=== PATIENT | female | born 1950 | race African-American/Black ===

== ENCOUNTER 2020-09-03 19:39 | Inpatient (IN) | payer MEDICARE, OTHER ==
[~2020-09-03] VITALS: Ht 152.4 cm; Wt 57.7 kg
[2020-09-03 21:01] LABS: BASOPHILS % 0.6 % (0.0-2.0); EOSINOPHILS % 0.4 % (0.0-5.0); HEMATOCRIT. 36.8 % (36.0-48.0); HEMOGLOBIN. 12.8 g/dL (12.0-16.0); LYMPHOCYTES % 43.6 % (20.0-50.0); MEAN CORPUSCULAR HEMOGLOBIN 31.7 pg (28.0-32.0); MEAN CORPUSCULAR VOLUME 91.1 fL (81.0-99.0); MEAN PLATELET VOLUME 10.6 fl (7.4-10.4); MONOCYTES % 4.9 % (2.0-8.0); NEUTROPHILS % 50.5 % (40.0-76.0); PLATELET 118 x1000/uL (130-400); RED BLOOD CELL COUNT 4.04 mill/uL (4.2-5.4); RED CELL DISTRIBUTION WIDTH 13.6 % (11.6-14.6)
[2020-09-03 21:08] LABS: CHLORIDE 109 mEq/L (98-107)
[2020-09-03 21:10] LABS: INR 1.1; PROTHROMBIN TIME 11.4 sec (9.6-11.0)
[2020-09-03] MEDS ORDERED: ASPIRIN 325MG EC TABLET PO ONE (21:30)
[2020-09-03] MEDS ORDERED: CLOPIDOGREL 75MG TABLET PO ONE (21:30)
[2020-09-04] VITALS (7 sets, daily range): BP systolic 108–144; BP diastolic 43–51
[2020-09-04] MEDS: DEXT 5%/0.45% NACL KCL 20MEQ/L 1,000 ML IV SCH ×2 (05:16→14:17)
[2020-09-04 06:54] LABS: CHLORIDE 110 mEq/L (98-107)
[2020-09-04 07:04] LABS: HEMATOCRIT 34.7 % (36.0-48.0); MEAN CORPUSCULAR HEMOGLOBIN 31.6 pg (28.0-32.0); MEAN CORPUSCULAR VOLUME 91.1 fL (81.0-99.0); PLATELET 118 x1000/uL (130-400); RED BLOOD CELL COUNT 3.81 mill/uL (4.2-5.4); RED CELL DISTRIBUTION WIDTH 13.8 % (11.6-14.6)
[2020-09-04 07:13] LABS: HDL CHOLESTEROL 81 mg/dL (40-59)
[2020-09-04 07:15] LABS: LDL CHOLESTEROL 88 mg/dL (5-100)
[2020-09-04] MEDS ORDERED: ONDANSETRON HCL 4MG/2ML INJ IV PRN (10:00)
[2020-09-04] MEDS: ASPIRIN 81MG TABLET PO SCH (10:35)
[2020-09-04] MEDS: CLOPIDOGREL 75MG TABLET PO SCH (10:35)
[2020-09-04] MEDS: ENOXAPARIN 40MG/0.4ML SYR SUBCUT SCH (18:31)
[2020-09-04] MEDS: ATORVASTATIN CALCIUM 40MG TABLET PO SCH (21:34)
[2020-09-05 00:36] VITALS: BP 113/57
[2020-09-05 04:32] VITALS: BP 133/58
[2020-09-05] MEDS: DEXT 5%/0.45% NACL KCL 20MEQ/L 1,000 ML IV SCH ×3 (05:46→18:39)
[2020-09-05 07:27] LABS: CHLORIDE 107 mEq/L (98-107)
[2020-09-05 08:00] VITALS: BP 145/55
[2020-09-05 08:08] LABS: HEMATOCRIT. 37.9 % (36.0-48.0); HEMOGLOBIN. 12.7 g/dL (12.0-16.0); MEAN CORPUSCULAR HEMOGLOBIN 31.3 pg (28.0-32.0); MEAN CORPUSCULAR VOLUME 93.3 fL (81.0-99.0); MEAN PLATELET VOLUME 11.8 fl (7.4-10.4); PLATELET 127 x1000/uL (130-400); RED BLOOD CELL COUNT 4.06 mill/uL (4.2-5.4); RED CELL DISTRIBUTION WIDTH 13.7 % (11.6-14.6)
[2020-09-05] MEDS ORDERED: ASPIRIN 300MG SUPP PR SCH (09:00)
[2020-09-05] MEDS: CLOPIDOGREL 75MG TABLET PO SCH (09:19)
[2020-09-05] MEDS: ASPIRIN 81MG TABLET PO SCH (09:19)
[2020-09-05 12:00] VITALS: BP 120/44
[2020-09-05 16:00] VITALS: BP 117/45
[2020-09-05] MEDS: ENOXAPARIN 40MG/0.4ML SYR SUBCUT SCH (18:39)
[2020-09-05 20:00] VITALS: BP 122/54
[2020-09-05] MEDS: ATORVASTATIN CALCIUM 40MG TABLET PO SCH (20:57)
[2020-09-05] MEDS: ACETAMINOPHEN 325MG TABLET PO PRN (20:57)
[2020-09-05 22:28] LABS: PLATELET ESTIMATE SLIGHTLY DECREASED
[2020-09-06] VITALS: BP 162/59
[2020-09-06] MEDS: CLONIDINE 0.1MG TABLET PO PRN (01:15)
[2020-09-06 04:00] VITALS: BP 121/83
[2020-09-06] MEDS: DEXT 5%/0.45% NACL KCL 20MEQ/L 1,000 ML IV SCH ×2 (04:21→14:19)
[2020-09-06 06:55] LABS: CHLORIDE 110 mEq/L (98-107)
[2020-09-06 07:00] LABS: HEMATOCRIT. 37.2 % (36.0-48.0); HEMOGLOBIN. 12.7 g/dL (12.0-16.0); MEAN PLATELET VOLUME 11.1 fl (7.4-10.4); PLATELET 133 x1000/uL (130-400); RED BLOOD CELL COUNT 4.09 mill/uL (4.2-5.4); RED CELL DISTRIBUTION WIDTH 13.8 % (11.6-14.6)
[2020-09-06 08:00] VITALS: BP 135/62
[2020-09-06] MEDS: CLOPIDOGREL 75MG TABLET PO SCH (08:16)
[2020-09-06] MEDS: ASPIRIN 81MG TABLET PO SCH (08:16)
[2020-09-06 12:00] VITALS: BP 110/54
[2020-09-06 14:14] LABS: PLATELET ESTIMATE NORMAL
[2020-09-06 16:00] VITALS: BP 131/45
[2020-09-06] MEDS: ENOXAPARIN 40MG/0.4ML SYR SUBCUT SCH (17:00)
[2020-09-06 20:00] VITALS: BP 125/48
[2020-09-06] MEDS: ATORVASTATIN CALCIUM 40MG TABLET PO SCH (21:00)
[2020-09-07] VITALS: BP 129/49
[2020-09-07] MEDS: DEXT 5%/0.45% NACL KCL 20MEQ/L 1,000 ML IV SCH ×3 (01:12→20:48)
[2020-09-07 04:00] VITALS: BP 131/45
[2020-09-07 08:00] VITALS: BP 130/50
[2020-09-07] MEDS: CLOPIDOGREL 75MG TABLET PO SCH (08:38)
[2020-09-07] MEDS: ASPIRIN 81MG TABLET PO SCH (08:38)
[2020-09-07 16:00] VITALS: BP 136/70
[2020-09-07] MEDS: ENOXAPARIN 40MG/0.4ML SYR SUBCUT SCH (17:00)
[2020-09-07 20:00] VITALS: BP 122/45
[2020-09-07] MEDS: ATORVASTATIN CALCIUM 40MG TABLET PO SCH (20:48)
[2020-09-08] VITALS: BP 130/40
[2020-09-08 04:00] VITALS: BP 122/45
[2020-09-08 08:00] VITALS: BP 115/47
[2020-09-08] MEDS: DEXT 5%/0.45% NACL KCL 20MEQ/L 1,000 ML IV SCH ×2 (08:04→16:03)
[2020-09-08] MEDS: ASPIRIN 81MG TABLET PO SCH (08:04)
[2020-09-08] MEDS: CLOPIDOGREL 75MG TABLET PO SCH (08:04)
[2020-09-08 12:00] VITALS: BP 106/34
[2020-09-08 16:00] VITALS: BP 128/44
[2020-09-08] MEDS: ENOXAPARIN 40MG/0.4ML SYR SUBCUT SCH (16:04)
[2020-09-08] MEDS: ACETAMINOPHEN 325MG TABLET PO PRN (17:12)
[2020-09-08 20:00] VITALS: BP 114/51
[2020-09-08] MEDS: ATORVASTATIN CALCIUM 40MG TABLET PO SCH (20:28)
[2020-09-09] VITALS: BP 108/53
[2020-09-09] MEDS: DEXT 5%/0.45% NACL KCL 20MEQ/L 1,000 ML IV SCH ×3 (02:09→22:13)
[2020-09-09 04:00] VITALS: BP 139/49
[2020-09-09 07:06] LABS: BASOPHILS % 0.2 % (0.0-2.0); EOSINOPHILS % 1.6 % (0.0-5.0); HEMATOCRIT. 39.2 % (36.0-48.0); HEMOGLOBIN. 13.1 g/dL (12.0-16.0); LYMPHOCYTES % 43.8 % (20.0-50.0); MEAN CORPUSCULAR HEMOGLOBIN 31.5 pg (28.0-32.0); MEAN CORPUSCULAR VOLUME 94.4 fL (81.0-99.0); MONOCYTES % 9.7 % (2.0-8.0); NEUTROPHILS % 44.7 % (40.0-76.0); PLATELET 148 x1000/uL (130-400); RED BLOOD CELL COUNT 4.16 mill/uL (4.2-5.4); RED CELL DISTRIBUTION WIDTH 13.6 % (11.6-14.6)
[2020-09-09 07:21] LABS: CHLORIDE 108 mEq/L (98-107)
[2020-09-09 08:00] VITALS: BP 129/55
[2020-09-09] MEDS: ASPIRIN 81MG TABLET PO SCH (08:04)
[2020-09-09] MEDS: CLOPIDOGREL 75MG TABLET PO SCH (08:04)
[2020-09-09 08:59] LABS: CLARITY URINE CLEAR (CLEAR); COLOR URINE YELLOW (YELLOW); KETONES URINE NEGATIVE (NEGATIVE); LEUKOCYTE ESTERASE URINE 3+ (NEGATIVE); NITRITE URINE POSITIVE (NEGATIVE); OCCULT BLOOD URINE TRACE (NEGATIVE); PH URINE 6.5 (4.5-8.0); PROTEIN URINE NEGATIVE (NEGATIVE); SPECIFIC GRAVITY URINE 1.008 (1.005-1.030); UROBILINOGEN URINE 0.2 E.U./dL (0.2-1.0)
[2020-09-09 12:00] VITALS: BP 138/41
[2020-09-09] MEDS: VANCOMYCIN 1 G PREMIX 200 ML IV SCH (14:27)
[2020-09-09 16:00] VITALS: BP 135/46
[2020-09-09] MEDS: ENOXAPARIN 40MG/0.4ML SYR SUBCUT SCH (16:12)
[2020-09-09] MEDS: CEFTRIAXONE 1,000 MG in DEXTROSE 5% WATER 50 ML IV SCH (16:23)
[2020-09-09 20:00] VITALS: BP 128/50
[2020-09-09] MEDS: ATORVASTATIN CALCIUM 40MG TABLET PO SCH (20:34)
[2020-09-10] VITALS: BP 132/57
[2020-09-10 04:00] VITALS: BP 128/50
[2020-09-10 07:35] LABS: BASOPHILS % 0.3 % (0.0-2.0); HEMATOCRIT. 37.8 % (36.0-48.0); HEMOGLOBIN. 12.7 g/dL (12.0-16.0); LYMPHOCYTES % 45.9 % (20.0-50.0); MEAN CORPUSCULAR VOLUME 92.2 fL (81.0-99.0); MEAN PLATELET VOLUME 12.4 fl (7.4-10.4); MONOCYTES % 7.5 % (2.0-8.0); NEUTROPHILS % 44.3 % (40.0-76.0); PLATELET 167 x1000/uL (130-400); RED CELL DISTRIBUTION WIDTH 13.5 % (11.6-14.6)
[2020-09-10 07:43] LABS: CHLORIDE 106 mEq/L (98-107)
[2020-09-10] MEDS: ASPIRIN 81MG TABLET PO SCH (09:06)
[2020-09-10] MEDS: CLOPIDOGREL 75MG TABLET PO SCH (09:06)
[2020-09-10] MEDS: DEXT 5%/0.45% NACL KCL 20MEQ/L 1,000 ML IV SCH ×2 (09:07→21:23)
[2020-09-10] MEDS: VANCOMYCIN 1 G PREMIX 200 ML IV SCH (09:07)
[2020-09-10 12:00] VITALS: BP 114/68
[2020-09-10 16:00] VITALS: BP 116/70
[2020-09-10] MEDS: CEFTRIAXONE 1,000 MG in DEXTROSE 5% WATER 50 ML IV SCH (16:59)
[2020-09-10] MEDS: ENOXAPARIN 40MG/0.4ML SYR SUBCUT SCH (17:00)
[2020-09-10 20:00] VITALS: BP 145/49
[2020-09-10] MEDS: ATORVASTATIN CALCIUM 40MG TABLET PO SCH (21:22)
[2020-09-11] VITALS: BP 141/58
[2020-09-11] MEDS: VANCOMYCIN 1 G PREMIX 200 ML IV SCH (02:06)
[2020-09-11 04:00] VITALS: BP 150/51
[2020-09-11] MEDS: DEXT 5%/0.45% NACL KCL 20MEQ/L 1,000 ML IV SCH ×2 (04:55→15:00)
[2020-09-11 08:00] VITALS: BP 130/60
[2020-09-11 08:42] LABS: CHLORIDE 106 mEq/L (98-107)
[2020-09-11] MEDS: ASPIRIN 81MG TABLET PO SCH (09:13)
[2020-09-11] MEDS: CLOPIDOGREL 75MG TABLET PO SCH (09:13)
[2020-09-11 12:00] VITALS: BP 143/60
[2020-09-11 16:00] VITALS: BP 164/63
[2020-09-11] MEDS ORDERED: VANCOMYCIN 750 MG PREMIX 150 ML IV SCH (16:00)
[2020-09-11] MEDS: ENOXAPARIN 40MG/0.4ML SYR SUBCUT SCH (17:00)
[2020-09-11 20:00] VITALS: BP 133/61
[2020-09-11] MEDS: ATORVASTATIN CALCIUM 40MG TABLET PO SCH (20:01)
[2020-09-11] MEDS: CEFAZOLIN 2,000 MG in DEXT 5% WATER 100 ML IV SCH (20:01)
[2020-09-12] VITALS (7 sets, daily range): BP systolic 119–183; BP diastolic 34–68
[2020-09-12] MEDS: CEFAZOLIN 2,000 MG in DEXT 5% WATER 100 ML IV SCH ×2 (03:53→11:14)
[2020-09-12] MEDS: DEXT 5%/0.45% NACL KCL 20MEQ/L 1,000 ML IV SCH ×3 (03:54→21:00)
[2020-09-12] MEDS: CLOPIDOGREL 75MG TABLET PO SCH (08:31)
[2020-09-12] MEDS: ASPIRIN 81MG TABLET PO SCH (08:31)
[2020-09-12] MEDS: ENOXAPARIN 40MG/0.4ML SYR SUBCUT SCH (17:00)
[2020-09-12] MEDS: ATORVASTATIN CALCIUM 40MG TABLET PO SCH (21:00)
[2020-09-13] MEDS: LEVOFLOXACIN 500MG TABLET PO SCH
[2020-09-13 04:00] VITALS: BP 127/53
[2020-09-13] MEDS: CLOPIDOGREL 75MG TABLET PO SCH (08:10)
[2020-09-13] MEDS: ASPIRIN 81MG TABLET PO SCH (08:10)
[2020-09-13 08:55] VITALS: BP 139/62
[2020-09-13 11:40] VITALS: BP 136/70
[2020-09-13 12:05] LABS: BASOPHILS % 0.4 % (0.0-2.0); EOSINOPHILS % 2.4 % (0.0-5.0); HEMATOCRIT. 39.7 % (36.0-48.0); LYMPHOCYTES % 60.4 % (20.0-50.0); MEAN CORPUSCULAR HEMOGLOBIN 32.3 pg (28.0-32.0); MEAN CORPUSCULAR VOLUME 91.7 fL (81.0-99.0); MONOCYTES % 6.8 % (2.0-8.0); PLATELET 206 x1000/uL (130-400); RED BLOOD CELL COUNT 4.33 mill/uL (4.2-5.4); RED CELL DISTRIBUTION WIDTH 13.6 % (11.6-14.6)
[2020-09-13 12:21] LABS: CHLORIDE 106 mEq/L (98-107)
[2020-09-13 15:50] VITALS: BP 130/107
[2020-09-13] MEDS: DEXT 5%/0.45% NACL KCL 20MEQ/L 1,000 ML IV SCH (17:00)
[2020-09-13] MEDS: ENOXAPARIN 40MG/0.4ML SYR SUBCUT SCH (17:00)
[2020-09-13 20:00] VITALS: BP 142/94
[2020-09-13] MEDS: ATORVASTATIN CALCIUM 40MG TABLET PO SCH (21:00)
[2020-09-13] MEDS: CEFAZOLIN 2,000 MG in DEXT 5% WATER 100 ML IV SCH (21:30)
[2020-09-14] VITALS: BP 127/40
[2020-09-14] MEDS: LEVOFLOXACIN 500MG TABLET PO SCH
[2020-09-14] MEDS: DEXT 5%/0.45% NACL KCL 20MEQ/L 1,000 ML IV SCH ×2 (02:57→14:16)
[2020-09-14 04:00] VITALS: BP 123/63
[2020-09-14 08:00] VITALS: BP 123/41
[2020-09-14] MEDS ORDERED: LIDOCAINE HCL 1% 20ML VIAL (Pyxis) INJ ONE (08:24)
[2020-09-14] MEDS: CLOPIDOGREL 75MG TABLET PO SCH (09:00)
[2020-09-14] MEDS: ASPIRIN 81MG TABLET PO SCH (09:00)
[2020-09-14] MEDS: CEFAZOLIN 2,000 MG in DEXT 5% WATER 100 ML IV SCH ×2 (11:45→21:44)
[2020-09-14 12:00] VITALS: BP 138/76
[2020-09-14 16:00] VITALS: BP 145/81
[2020-09-14] MEDS: ENOXAPARIN 40MG/0.4ML SYR SUBCUT SCH (17:18)
[2020-09-14 20:00] VITALS: BP 139/71
[2020-09-14] MEDS: ATORVASTATIN CALCIUM 40MG TABLET PO SCH (21:44)
[2020-09-15] VITALS: BP 123/54
[2020-09-15 04:00] VITALS: BP 135/63
[2020-09-15 08:00] VITALS: BP 135/55
[2020-09-15] MEDS: CLOPIDOGREL 75MG TABLET PO SCH (09:15)
[2020-09-15] MEDS: ASPIRIN 81MG TABLET PO SCH (09:15)
[2020-09-15 12:00] VITALS: BP 139/45
[2020-09-15] MEDS: CEFAZOLIN 2,000 MG in DEXT 5% WATER 100 ML IV SCH ×2 (13:14→20:03)
[2020-09-15 16:00] VITALS: BP 144/34
[2020-09-15] MEDS: ENOXAPARIN 40MG/0.4ML SYR SUBCUT SCH (17:00)
[2020-09-15 20:00] VITALS: BP 146/80
[2020-09-15] MEDS: ATORVASTATIN CALCIUM 40MG TABLET PO SCH (20:03)
[2020-09-16] VITALS: BP 138/70
[2020-09-16 04:00] VITALS: BP 123/64
[2020-09-16 08:00] VITALS: BP 148/71
[2020-09-16] MEDS: CLOPIDOGREL 75MG TABLET PO SCH ×2 (09:00→09:53)
[2020-09-16] MEDS: ASPIRIN 81MG TABLET PO SCH ×2 (09:00→09:53)
[2020-09-16] MEDS: CEFAZOLIN 2,000 MG in DEXT 5% WATER 100 ML IV SCH ×2 (09:53→20:52)
[2020-09-16 12:00] VITALS: BP 157/66
[2020-09-16 16:00] VITALS: BP 136/69
[2020-09-16] MEDS: ENOXAPARIN 40MG/0.4ML SYR SUBCUT SCH (17:00)
[2020-09-16 20:00] VITALS: BP 138/70
[2020-09-16] MEDS: ATORVASTATIN CALCIUM 40MG TABLET PO SCH ×2 (20:58→21:00)
[2020-09-17] VITALS: BP 139/66
[2020-09-17 04:00] VITALS: BP 139/88
[2020-09-17] MEDS: DEXT 5%/0.45% NACL KCL 20MEQ/L 1,000 ML IV SCH ×2 (05:22→13:33)
[2020-09-17 08:00] VITALS: BP 160/59
[2020-09-17] MEDS: CLOPIDOGREL 75MG TABLET PO SCH (09:00)
[2020-09-17] MEDS: ASPIRIN 81MG TABLET PO SCH (09:00)
[2020-09-17] MEDS: CEFAZOLIN 2,000 MG in DEXT 5% WATER 100 ML IV SCH ×2 (13:34→22:27)
[2020-09-17 13:39] VITALS: BP 154/56
[2020-09-17 16:00] VITALS: BP 154/56
[2020-09-17] MEDS: ENOXAPARIN 40MG/0.4ML SYR SUBCUT SCH (17:00)
[2020-09-17 20:00] VITALS: BP 118/70
[2020-09-17] MEDS: ATORVASTATIN CALCIUM 40MG TABLET PO SCH (22:27)
[2020-09-18] VITALS: BP 120/66
[2020-09-18 04:00] VITALS: BP 122/80
[2020-09-18] MEDS: CLOPIDOGREL 75MG TABLET PO SCH (09:07)
[2020-09-18] MEDS: ASPIRIN 81MG TABLET PO SCH (09:07)
[2020-09-18] MEDS: DEXT 5%/0.45% NACL KCL 20MEQ/L 1,000 ML IV SCH ×2 (09:53→21:17)
[2020-09-18] MEDS: CEFAZOLIN 2,000 MG in DEXT 5% WATER 100 ML IV SCH (09:53)
[2020-09-18 12:00] VITALS: BP 145/66
[2020-09-18 16:00] VITALS: BP 157/81
[2020-09-18] MEDS: ENOXAPARIN 40MG/0.4ML SYR SUBCUT SCH (18:24)
[2020-09-18 20:00] VITALS: BP 156/63
[2020-09-18] MEDS: SERTRALINE HCL 25MG TABLET PO SCH (21:42)
[2020-09-18] MEDS: ATORVASTATIN CALCIUM 40MG TABLET PO SCH (21:42)
[2020-09-19] VITALS: BP 135/66
[2020-09-19 04:00] VITALS: BP 137/65
[2020-09-19 05:32] LABS: BASOPHILS % 0.2 % (0.0-2.0); EOSINOPHILS % 2.1 % (0.0-5.0); HEMATOCRIT. 37.1 % (36.0-48.0); HEMOGLOBIN. 12.4 g/dL (12.0-16.0); LYMPHOCYTES % 56.1 % (20.0-50.0); MEAN CORPUSCULAR HEMOGLOBIN 30.9 pg (28.0-32.0); MEAN CORPUSCULAR VOLUME 92.5 fL (81.0-99.0); MONOCYTES % 6.5 % (2.0-8.0); NEUTROPHILS % 35.1 % (40.0-76.0); PLATELET 109 x1000/uL (130-400); RED BLOOD CELL COUNT 4.01 mill/uL (4.2-5.4); RED CELL DISTRIBUTION WIDTH 13.5 % (11.6-14.6)
[2020-09-19 05:45] LABS: CHLORIDE 107 mEq/L (98-107)
[2020-09-19 08:00] VITALS: BP 111/54
[2020-09-19] MEDS: SERTRALINE HCL 25MG TABLET PO SCH (08:53)
[2020-09-19] MEDS: ASPIRIN 81MG TABLET PO SCH (08:53)
[2020-09-19] MEDS: CLOPIDOGREL 75MG TABLET PO SCH (08:53)
[2020-09-19] MEDS: DEXT 5%/0.45% NACL KCL 20MEQ/L 1,000 ML IV SCH ×3 (08:58→22:11)
[2020-09-19] MEDS: CEFAZOLIN 2,000 MG in DEXT 5% WATER 100 ML IV SCH ×2 (13:32→22:10)
[2020-09-19] MEDS: ACETAMINOPHEN 325MG TABLET PO PRN (14:38)
[2020-09-19 16:00] VITALS: BP 155/54
[2020-09-19] MEDS: ENOXAPARIN 40MG/0.4ML SYR SUBCUT SCH (17:19)
[2020-09-19 20:00] VITALS: BP 136/61
[2020-09-19] MEDS: ATORVASTATIN CALCIUM 40MG TABLET PO SCH (22:10)
[2020-09-20] VITALS: BP 148/63
[2020-09-20 04:00] VITALS: BP 151/50
[2020-09-20] MEDS: CEFAZOLIN 2,000 MG in DEXT 5% WATER 100 ML IV SCH ×2 (06:29→13:47)
[2020-09-20] MEDS: CLONIDINE 0.1MG TABLET PO PRN ×2 (07:44→15:17)
[2020-09-20 08:00] VITALS: BP 166/61
[2020-09-20] MEDS: DEXT 5%/0.45% NACL KCL 20MEQ/L 1,000 ML IV SCH (09:29)
[2020-09-20] MEDS: ASPIRIN 81MG TABLET PO SCH (09:29)
[2020-09-20] MEDS: CLOPIDOGREL 75MG TABLET PO SCH (09:30)
[2020-09-20] MEDS: SERTRALINE HCL 25MG TABLET PO SCH (09:30)
[2020-09-20 12:00] VITALS: BP 167/67
[2020-09-20 16:00] VITALS: BP 169/57
[2020-09-20] MEDS: ENOXAPARIN 40MG/0.4ML SYR SUBCUT SCH (17:00)
[2020-09-20 20:00] VITALS: BP 153/51
[2020-09-20] MEDS: ATORVASTATIN CALCIUM 40MG TABLET PO SCH (22:01)
[2020-09-21] VITALS: BP 156/68
[2020-09-21] MEDS: CEFAZOLIN 2,000 MG in DEXT 5% WATER 100 ML IV SCH ×5 (00:26→21:46)
[2020-09-21 04:00] VITALS: BP 155/55
[2020-09-21 05:26] LABS: BASOPHILS % 0.3 % (0.0-2.0); EOSINOPHILS % 2.3 % (0.0-5.0); HEMATOCRIT. 37.3 % (36.0-48.0); HEMOGLOBIN. 12.4 g/dL (12.0-16.0); LYMPHOCYTES % 64.2 % (20.0-50.0); MEAN CORPUSCULAR VOLUME 93.1 fL (81.0-99.0); MEAN PLATELET VOLUME 11.8 fl (7.4-10.4); MONOCYTES % 5.2 % (2.0-8.0); PLATELET 125 x1000/uL (130-400); RED BLOOD CELL COUNT 4.01 mill/uL (4.2-5.4)
[2020-09-21 08:00] VITALS: BP 163/55
[2020-09-21] MEDS: SERTRALINE HCL 25MG TABLET PO SCH (08:59)
[2020-09-21] MEDS: ASPIRIN 81MG TABLET PO SCH (08:59)
[2020-09-21] MEDS: CLOPIDOGREL 75MG TABLET PO SCH (08:59)
[2020-09-21 12:00] VITALS: BP 140/58
[2020-09-21 16:00] VITALS: BP 94/51
[2020-09-21] MEDS: AMLODIPINE 10MG TABLET PO SCH (17:30)
[2020-09-21] MEDS: ENOXAPARIN 40MG/0.4ML SYR SUBCUT SCH (18:07)
[2020-09-21 20:00] VITALS: BP 154/60
[2020-09-21] MEDS: ATORVASTATIN CALCIUM 40MG TABLET PO SCH (21:46)
[2020-09-22] VITALS: BP 158/64
[2020-09-22 04:00] VITALS: BP 144/71
[2020-09-22] MEDS: CEFAZOLIN 2,000 MG in DEXT 5% WATER 100 ML IV SCH ×3 (06:24→21:22)
[2020-09-22 08:00] VITALS: BP 148/58
[2020-09-22] MEDS: AMLODIPINE 10MG TABLET PO SCH (09:38)
[2020-09-22] MEDS: CLOPIDOGREL 75MG TABLET PO SCH (09:38)
[2020-09-22] MEDS: SERTRALINE HCL 25MG TABLET PO SCH (09:39)
[2020-09-22] MEDS: ASPIRIN 81MG TABLET PO SCH (09:39)
[2020-09-22 12:00] VITALS: BP 167/62
[2020-09-22 16:00] VITALS: BP 158/60
[2020-09-22 17:22] LABS: BASOPHILS % 0.2 % (0.0-2.0); EOSINOPHILS % 0.7 % (0.0-5.0); HEMATOCRIT. 37.4 % (36.0-48.0); HEMOGLOBIN. 12.8 g/dL (12.0-16.0); LYMPHOCYTES % 62.4 % (20.0-50.0); MEAN CORPUSCULAR HEMOGLOBIN 31.6 pg (28.0-32.0); MEAN CORPUSCULAR VOLUME 91.8 fL (81.0-99.0); MEAN PLATELET VOLUME 11.4 fl (7.4-10.4); MONOCYTES % 5.8 % (2.0-8.0); NEUTROPHILS % 30.9 % (40.0-76.0); PLATELET 164 x1000/uL (130-400); RED BLOOD CELL COUNT 4.07 mill/uL (4.2-5.4); RED CELL DISTRIBUTION WIDTH 13.5 % (11.6-14.6)
[2020-09-22 20:00] VITALS: BP 106/60
[2020-09-22] MEDS: ATORVASTATIN CALCIUM 40MG TABLET PO SCH (20:43)
[2020-09-23] VITALS: BP 133/67
[2020-09-23 04:00] VITALS: BP 133/63
[2020-09-23] MEDS: CEFAZOLIN 2,000 MG in DEXT 5% WATER 100 ML IV SCH ×3 (05:14→21:13)
[2020-09-23 08:00] VITALS: BP 145/51
[2020-09-23] MEDS: ASPIRIN 81MG TABLET PO SCH (09:13)
[2020-09-23] MEDS: CLOPIDOGREL 75MG TABLET PO SCH (09:13)
[2020-09-23] MEDS: SERTRALINE HCL 25MG TABLET PO SCH (09:14)
[2020-09-23] MEDS: AMLODIPINE 10MG TABLET PO SCH (09:14)
[2020-09-23 12:00] VITALS: BP 173/90
[2020-09-23 12:46] LABS: BASOPHILS % 0.1 % (0.0-2.0); EOSINOPHILS % 0.8 % (0.0-5.0); HEMATOCRIT. 36.7 % (36.0-48.0); HEMOGLOBIN. 12.6 g/dL (12.0-16.0); LYMPHOCYTES % 58.1 % (20.0-50.0); MEAN CORPUSCULAR HEMOGLOBIN 31.9 pg (28.0-32.0); MEAN CORPUSCULAR VOLUME 92.5 fL (81.0-99.0); MEAN PLATELET VOLUME 11.1 fl (7.4-10.4); MONOCYTES % 5.1 % (2.0-8.0); NEUTROPHILS % 35.9 % (40.0-76.0); PLATELET 152 x1000/uL (130-400); RED BLOOD CELL COUNT 3.96 mill/uL (4.2-5.4); RED CELL DISTRIBUTION WIDTH 13.6 % (11.6-14.6)
[2020-09-23 12:56] LABS: CHLORIDE 104 mEq/L (98-107)
[2020-09-23 16:00] VITALS: BP 140/86
[2020-09-23] MEDS: ENOXAPARIN 40MG/0.4ML SYR SUBCUT SCH ×2 (17:00→18:28)
[2020-09-23 20:00] VITALS: BP 139/61
[2020-09-23] MEDS: ATORVASTATIN CALCIUM 40MG TABLET PO SCH (21:13)
[2020-09-24 04:00] VITALS: BP 152/51
[2020-09-24] MEDS: CEFAZOLIN 2,000 MG in DEXT 5% WATER 100 ML IV SCH ×3 (06:00→22:13)
[2020-09-24 08:00] VITALS: BP 132/46
[2020-09-24] MEDS: AMLODIPINE 10MG TABLET PO SCH (09:03)
[2020-09-24] MEDS: SERTRALINE HCL 25MG TABLET PO SCH (09:03)
[2020-09-24] MEDS: ASPIRIN 81MG TABLET PO SCH (09:03)
[2020-09-24] MEDS: CLOPIDOGREL 75MG TABLET PO SCH (09:03)
[2020-09-24 12:00] VITALS: BP 132/75
[2020-09-24] MEDS: ENOXAPARIN 40MG/0.4ML SYR SUBCUT SCH (17:00)
[2020-09-24 20:00] VITALS: BP 166/59
[2020-09-24] MEDS: NYSTATIN 100,000 UNITS/GM OINT 15GM TOP SCH (21:00)
[2020-09-24] MEDS: ATORVASTATIN CALCIUM 40MG TABLET PO SCH (21:52)
[2020-09-25] VITALS (7 sets, daily range): BP systolic 111–138; BP diastolic 41–60
[2020-09-25] MEDS: CEFAZOLIN 2,000 MG in DEXT 5% WATER 100 ML IV SCH ×2 (05:12→14:29)
[2020-09-25] MEDS: SERTRALINE HCL 25MG TABLET PO SCH (09:47)
[2020-09-25] MEDS: ASPIRIN 81MG TABLET PO SCH (09:47)
[2020-09-25] MEDS: CLOPIDOGREL 75MG TABLET PO SCH (09:47)
[2020-09-25] MEDS: AMLODIPINE 10MG TABLET PO SCH (09:52)
[2020-09-25] MEDS: NYSTATIN 100,000 UNITS/GM OINT 15GM TOP SCH ×2 (09:53→20:55)
[2020-09-25] MEDS: ENOXAPARIN 40MG/0.4ML SYR SUBCUT SCH (17:47)
[2020-09-25] MEDS: ATORVASTATIN CALCIUM 40MG TABLET PO SCH (20:55)
== END 2020-09-25 21:50 | DRG 64 ==
LOC: ER 19:39 → 8WST 22:31 → EDBEDREQTM 22:36 → EDBEDREQ 22:36 → ENRESERV 09-04 00:07 → 8WST 09-13 20:00 → 6EST 09-18 12:25
PROVIDERS: ADMIT Internal Medicine; ATTEND Internal Medicine
PROC: 4A10X4Z Monitoring of Central Nervous Electrical Activity, External Approach (ICD-10-PCS; principal; 2020-09-07)
PROC: 02HV33Z Insertion of Infusion Device into Superior Vena Cava, Percutaneous Approach (ICD-10-PCS; 2020-09-14)
PROC: B518ZZA Fluoroscopy of Superior Vena Cava, Guidance (ICD-10-PCS; 2020-09-14)
PROC: B548ZZA Ultrasonography of Superior Vena Cava, Guidance (ICD-10-PCS; 2020-09-14)
PROC: 02HV33Z Insertion of Infusion Device into Superior Vena Cava, Percutaneous Approach (ICD-10-PCS; 2020-09-24)
PROC: B518ZZA Fluoroscopy of Superior Vena Cava, Guidance (ICD-10-PCS; 2020-09-24)
PROC: B548ZZA Ultrasonography of Superior Vena Cava, Guidance (ICD-10-PCS; 2020-09-24)
DX: I63.9 Cerebral infarction, unspecified (principal); G93.41 Metabolic encephalopathy; L03.113 Cellulitis of right upper limb; N39.0 Urinary tract infection, site not specified; R78.81 Bacteremia; G81.91 Hemiplegia, unspecified affecting right dominant side; I76 Septic arterial embolism; E87.8 Other disorders of electrolyte and fluid balance, not elsewhere classified; S09.90XA Unspecified injury of head, initial encounter; I10 Essential (primary) hypertension; D72.829 Elevated white blood cell count, unspecified; E78.5 Hyperlipidemia, unspecified; R47.01 Aphasia; B95.61 Methicillin susceptible Staphylococcus aureus infection as the cause of diseases classified elsewhere; B96.89 Other specified bacterial agents as the cause of diseases classified elsewhere; Z20.822 Contact with and (suspected) exposure to COVID-19; R47.02 Dysphasia; W18.39XA Other fall on same level, initial encounter; Z86.73 Personal history of transient ischemic attack (TIA), and cerebral infarction without residual deficits; Y93.89 Activity, other specified; Y92.89 Other specified places as the place of occurrence of the external cause; Y99.8 Other external cause status; S00.11XA Contusion of right eyelid and periocular area, initial encounter; B96.20 Unspecified Escherichia coli [E. coli] as the cause of diseases classified elsewhere
CPT/HCPCS: 36415; 36573; 70551; 71045; 80048; 80053; 80061; 80202; 81003; 83036; 84145; 84484; 85025; 85027; 86850; 86900; 87077; 87186; 87426; 92523; 92610; 93005; 93306; 93880; 95816; 97110; 97112; 97116; 97162; 97167; 97530; 97535; 99291; A6261; C1725; C1769; C1893; J0690; J0696; J1650; J3370; J3490; J7040; J7060; U0003; A4315

== ENCOUNTER 2020-09-25 21:50 | Inpatient (IN) | payer MEDICARE ==
[~2020-09-25] VITALS: Ht 152.4 cm; Wt 52.6 kg
[2020-09-25 21:55] VITALS: BP 148/54
[2020-09-25 22:00] VITALS: BP 148/54
[2020-09-25] MEDS ORDERED: CLONIDINE 0.1MG TABLET PO PRN (23:00)
[2020-09-25] MEDS ORDERED: ONDANSETRON HCL 4MG/2ML INJ IV PRN (23:00)
[2020-09-25] MEDS ORDERED: ACETAMINOPHEN 325MG TABLET PO PRN (23:00)
[2020-09-25] MEDS ORDERED: CEFAZOLIN 1000MG PREMIX 50 ML IV SCH (23:00)
[2020-09-25] MEDS ORDERED: NON FORMULARY PATIENT HOME MED XX SCH (23:00)
[2020-09-26] MEDS: CEFAZOLIN 2000MG in DEXTROSE 5% WATER 100ML IV SCH ×3 (04:01→22:02)
[2020-09-26] MEDS ORDERED: CEFAZOLIN SODIUM 1000MG/VIAL IV SCH (06:00)
[2020-09-26 08:00] VITALS: BP 129/59
[2020-09-26] MEDS: NYSTATIN 100,000 UNITS/GM OINT 15GM TOP SCH ×2 (09:38→21:54)
[2020-09-26] MEDS: ASPIRIN 81MG EC TABLET PO SCH (09:38)
[2020-09-26] MEDS: AMLODIPINE 10MG TABLET PO SCH (09:39)
[2020-09-26] MEDS: CLOPIDOGREL 75MG TABLET PO SCH (09:39)
[2020-09-26] MEDS: SERTRALINE HCL 25MG TABLET PO SCH (09:39)
[2020-09-26] MEDS: ENOXAPARIN 40MG/0.4ML SYR SUBCUT SCH (17:25)
[2020-09-26 20:17] VITALS: BP 108/39
[2020-09-26] MEDS: ATORVASTATIN CALCIUM 40MG TABLET PO SCH (21:53)
[2020-09-27] MEDS: CEFAZOLIN 2000MG in DEXTROSE 5% WATER 100ML IV SCH ×3 (05:30→21:43)
[2020-09-27 07:45] VITALS: BP 117/57
[2020-09-27] MEDS: ASPIRIN 81MG EC TABLET PO SCH (08:12)
[2020-09-27] MEDS: CLOPIDOGREL 75MG TABLET PO SCH (08:12)
[2020-09-27] MEDS: SERTRALINE HCL 25MG TABLET PO SCH (08:12)
[2020-09-27] MEDS: NYSTATIN 100,000 UNITS/GM OINT 15GM TOP SCH ×2 (08:13→21:44)
[2020-09-27] MEDS: AMLODIPINE 10MG TABLET PO SCH (08:13)
[2020-09-27] MEDS ORDERED: LORAZEPAM 2MG/ML CPJ IV PRN (08:30)
[2020-09-27] MEDS: LACTULOSE 20G/30ML UDC PO SCH ×4 (10:03→21:43)
[2020-09-27] MEDS ORDERED: LACTULOSE 20G/30ML UDC PO SCH (14:00)
[2020-09-27] MEDS: ENOXAPARIN 40MG/0.4ML SYR SUBCUT SCH (17:13)
[2020-09-27 20:00] VITALS: BP 128/62
[2020-09-27] MEDS: ATORVASTATIN CALCIUM 40MG TABLET PO SCH (21:43)
[2020-09-28] MEDS: LACTULOSE 20G/30ML UDC PO SCH ×3 (04:00→08:00)
[2020-09-28] MEDS: CEFAZOLIN 2000MG in DEXTROSE 5% WATER 100ML IV SCH ×3 (05:53→20:52)
[2020-09-28 08:28] VITALS: BP 122/54
[2020-09-28] MEDS: SERTRALINE HCL 25MG TABLET PO SCH (09:19)
[2020-09-28] MEDS: AMLODIPINE 10MG TABLET PO SCH (09:19)
[2020-09-28] MEDS: ASPIRIN 81MG EC TABLET PO SCH (09:19)
[2020-09-28] MEDS: CLOPIDOGREL 75MG TABLET PO SCH (09:19)
[2020-09-28] MEDS: NYSTATIN 100,000 UNITS/GM OINT 15GM TOP SCH ×2 (09:20→20:51)
[2020-09-28] MEDS: ENOXAPARIN 40MG/0.4ML SYR SUBCUT SCH (17:27)
[2020-09-28 20:00] VITALS: BP 104/43
[2020-09-28] MEDS: ATORVASTATIN CALCIUM 40MG TABLET PO SCH (20:51)
[2020-09-29] MEDS: CEFAZOLIN 2000MG in DEXTROSE 5% WATER 100ML IV SCH ×3 (06:09→21:16)
[2020-09-29 08:30] VITALS: BP 114/44
[2020-09-29] MEDS: CLOPIDOGREL 75MG TABLET PO SCH (09:23)
[2020-09-29] MEDS: ASPIRIN 81MG EC TABLET PO SCH (09:23)
[2020-09-29] MEDS: SERTRALINE HCL 25MG TABLET PO SCH (09:23)
[2020-09-29] MEDS: BISACODYL 5MG TABLET PO PRN (09:23)
[2020-09-29] MEDS: AMLODIPINE 10MG TABLET PO SCH (09:24)
[2020-09-29] MEDS: NYSTATIN 100,000 UNITS/GM OINT 15GM TOP SCH ×2 (09:24→21:17)
[2020-09-29] MEDS: ENOXAPARIN 40MG/0.4ML SYR SUBCUT SCH (17:15)
[2020-09-29 20:00] VITALS: BP 111/44
[2020-09-29] MEDS: ATORVASTATIN CALCIUM 40MG TABLET PO SCH (21:17)
[2020-09-30] MEDS: CEFAZOLIN 2000MG in DEXTROSE 5% WATER 100ML IV SCH ×3 (06:00→22:25)
[2020-09-30 07:05] LABS: CHLORIDE 106 mEq/L (98-107)
[2020-09-30 07:10] LABS: HEMATOCRIT. 37.1 % (36.0-48.0); HEMOGLOBIN. 12.6 g/dL (12.0-16.0); MEAN CORPUSCULAR HEMOGLOBIN 31.4 pg (28.0-32.0); MEAN CORPUSCULAR VOLUME 92.3 fL (81.0-99.0); MEAN PLATELET VOLUME 12.3 fl (7.4-10.4); PLATELET 208 x1000/uL (130-400); RED BLOOD CELL COUNT 4.02 mill/uL (4.2-5.4); RED CELL DISTRIBUTION WIDTH 13.8 % (11.6-14.6)
[2020-09-30 08:00] VITALS: BP 115/45
[2020-09-30] MEDS: AMLODIPINE 10MG TABLET PO SCH (10:15)
[2020-09-30] MEDS: ASPIRIN 81MG EC TABLET PO SCH (10:15)
[2020-09-30] MEDS: CLOPIDOGREL 75MG TABLET PO SCH (10:15)
[2020-09-30] MEDS: SERTRALINE HCL 25MG TABLET PO SCH (10:15)
[2020-09-30] MEDS: NYSTATIN 100,000 UNITS/GM OINT 15GM TOP SCH ×2 (10:28→21:20)
[2020-09-30 15:09] LABS: PLATELET ESTIMATE NORMAL
[2020-09-30] MEDS: ENOXAPARIN 40MG/0.4ML SYR SUBCUT SCH (17:18)
[2020-09-30 20:00] VITALS: BP 108/38
[2020-09-30] MEDS: ATORVASTATIN CALCIUM 40MG TABLET PO SCH (21:19)
[2020-10-01] MEDS: CEFAZOLIN 2000MG in DEXTROSE 5% WATER 100ML IV SCH ×3 (05:45→21:03)
[2020-10-01 08:14] VITALS: BP 115/46
[2020-10-01] MEDS: AMLODIPINE 10MG TABLET PO SCH (09:00)
[2020-10-01] MEDS: ASPIRIN 81MG EC TABLET PO SCH (10:42)
[2020-10-01] MEDS: CLOPIDOGREL 75MG TABLET PO SCH (10:43)
[2020-10-01] MEDS: SERTRALINE HCL 25MG TABLET PO SCH (10:43)
[2020-10-01] MEDS: NYSTATIN 100,000 UNITS/GM OINT 15GM TOP SCH ×2 (10:45→20:45)
[2020-10-01] MEDS: ENOXAPARIN 40MG/0.4ML SYR SUBCUT SCH (17:00)
[2020-10-01 20:00] VITALS: BP_SYST 71
[2020-10-01] MEDS: ATORVASTATIN CALCIUM 40MG TABLET PO SCH (20:45)
[2020-10-02] MEDS: CEFAZOLIN 2000MG in DEXTROSE 5% WATER 100ML IV SCH ×3 (05:51→22:03)
[2020-10-02 08:00] VITALS: BP 115/68
[2020-10-02] MEDS: ASPIRIN 81MG EC TABLET PO SCH (09:00)
[2020-10-02] MEDS: AMLODIPINE 10MG TABLET PO SCH (10:47)
[2020-10-02] MEDS: SERTRALINE HCL 25MG TABLET PO SCH (10:48)
[2020-10-02] MEDS: NYSTATIN 100,000 UNITS/GM OINT 15GM TOP SCH ×2 (10:48→21:00)
[2020-10-02] MEDS: CLOPIDOGREL 75MG TABLET PO SCH (10:48)
[2020-10-02] MEDS: ENOXAPARIN 40MG/0.4ML SYR SUBCUT SCH (16:35)
[2020-10-02 20:00] VITALS: BP 108/48
[2020-10-02] MEDS: ATORVASTATIN CALCIUM 40MG TABLET PO SCH (21:04)
[2020-10-03] MEDS: CEFAZOLIN 2000MG in DEXTROSE 5% WATER 100ML IV SCH ×3 (05:47→22:45)
[2020-10-03] MEDS: BISACODYL 5MG TABLET PO PRN (05:47)
[2020-10-03 07:38] VITALS: BP 138/56
[2020-10-03] MEDS: ASPIRIN 81MG EC TABLET PO SCH (09:58)
[2020-10-03] MEDS: AMLODIPINE 10MG TABLET PO SCH (09:58)
[2020-10-03] MEDS: CLOPIDOGREL 75MG TABLET PO SCH (09:58)
[2020-10-03] MEDS: SERTRALINE HCL 25MG TABLET PO SCH (09:58)
[2020-10-03] MEDS: NYSTATIN 100,000 UNITS/GM OINT 15GM TOP SCH ×2 (09:59→21:40)
[2020-10-03] MEDS: ENOXAPARIN 40MG/0.4ML SYR SUBCUT SCH (18:11)
[2020-10-03 20:00] VITALS: BP 112/45
[2020-10-03] MEDS: ATORVASTATIN CALCIUM 40MG TABLET PO SCH (21:39)
[2020-10-04] MEDS: CEFAZOLIN 2000MG in DEXTROSE 5% WATER 100ML IV SCH ×3 (06:06→23:43)
[2020-10-04 08:00] VITALS: BP 121/40
[2020-10-04] MEDS: ASPIRIN 81MG EC TABLET PO SCH (09:43)
[2020-10-04] MEDS: SERTRALINE HCL 25MG TABLET PO SCH (09:43)
[2020-10-04] MEDS: AMLODIPINE 10MG TABLET PO SCH (09:45)
[2020-10-04] MEDS: NYSTATIN 100,000 UNITS/GM OINT 15GM TOP SCH ×2 (09:46→23:40)
[2020-10-04] MEDS: CLOPIDOGREL 75MG TABLET PO SCH (09:46)
[2020-10-04] MEDS: ENOXAPARIN 40MG/0.4ML SYR SUBCUT SCH (17:21)
[2020-10-04 20:00] VITALS: BP 103/50
[2020-10-04] MEDS: ATORVASTATIN CALCIUM 40MG TABLET PO SCH (23:37)
[2020-10-05] MEDS: CEFAZOLIN 2000MG in DEXTROSE 5% WATER 100ML IV SCH ×3 (05:45→21:08)
[2020-10-05 08:00] VITALS: BP 112/45
[2020-10-05] MEDS: ASPIRIN 81MG EC TABLET PO SCH (08:37)
[2020-10-05] MEDS: AMLODIPINE 10MG TABLET PO SCH (08:38)
[2020-10-05] MEDS: CLOPIDOGREL 75MG TABLET PO SCH (08:39)
[2020-10-05] MEDS: SERTRALINE HCL 25MG TABLET PO SCH (08:40)
[2020-10-05] MEDS: NYSTATIN 100,000 UNITS/GM OINT 15GM TOP SCH ×2 (08:40→21:14)
[2020-10-05] MEDS: ENOXAPARIN 40MG/0.4ML SYR SUBCUT SCH (17:00)
[2020-10-05 20:00] VITALS: BP 133/73
[2020-10-05] MEDS: ATORVASTATIN CALCIUM 40MG TABLET PO SCH (21:08)
[2020-10-06] MEDS: CEFAZOLIN 2000MG in DEXTROSE 5% WATER 100ML IV SCH ×3 (06:11→22:00)
[2020-10-06 08:00] VITALS: BP 110/47
[2020-10-06] MEDS: ASPIRIN 81MG EC TABLET PO SCH (09:00)
[2020-10-06] MEDS: CLOPIDOGREL 75MG TABLET PO SCH (09:00)
[2020-10-06] MEDS: AMLODIPINE 10MG TABLET PO SCH (09:00)
[2020-10-06] MEDS: SERTRALINE HCL 25MG TABLET PO SCH (09:00)
[2020-10-06] MEDS: NYSTATIN 100,000 UNITS/GM OINT 15GM TOP SCH ×2 (09:00→21:00)
[2020-10-06] MEDS ORDERED: LIDOCAINE HCL 1% 20ML VIAL (Pyxis) INJ ONE (13:55)
[2020-10-06] MEDS: ENOXAPARIN 40MG/0.4ML SYR SUBCUT SCH (17:00)
[2020-10-06 18:20] VITALS: BP 133/60
[2020-10-06] MEDS: ATORVASTATIN CALCIUM 40MG TABLET PO SCH (21:00)
[2020-10-07 06:32] LABS: HEMATOCRIT. 38.5 % (36.0-48.0); HEMOGLOBIN. 13.1 g/dL (12.0-16.0); MEAN CORPUSCULAR HEMOGLOBIN 31.5 pg (28.0-32.0); MEAN CORPUSCULAR VOLUME 92.6 fL (81.0-99.0); MEAN PLATELET VOLUME 12.2 fl (7.4-10.4); PLATELET 165 x1000/uL (130-400); RED BLOOD CELL COUNT 4.16 mill/uL (4.2-5.4); RED CELL DISTRIBUTION WIDTH 13.9 % (11.6-14.6)
[2020-10-07 06:47] LABS: CHLORIDE 106 mEq/L (98-107)
[2020-10-07 07:53] VITALS: BP 106/42
[2020-10-07] MEDS ORDERED: LIDOCAINE HCL 1% 20ML VIAL (Pyxis) INJ ONE (08:23)
[2020-10-07] MEDS: AMLODIPINE 10MG TABLET PO SCH (09:00)
[2020-10-07] MEDS: ASPIRIN 81MG EC TABLET PO SCH (09:12)
[2020-10-07] MEDS: CLOPIDOGREL 75MG TABLET PO SCH (09:12)
[2020-10-07] MEDS: NYSTATIN 100,000 UNITS/GM OINT 15GM TOP SCH ×2 (09:12→21:15)
[2020-10-07] MEDS: SERTRALINE HCL 25MG TABLET PO SCH (09:12)
[2020-10-07 15:33] LABS: NUCLEATED RED BLOOD CELLS 1 /100 WBC; PLATELET ESTIMATE NORMAL
[2020-10-07] MEDS: ENOXAPARIN 40MG/0.4ML SYR SUBCUT SCH (16:50)
[2020-10-07] MEDS: CEFAZOLIN 2000MG in DEXTROSE 5% WATER 100ML IV SCH (17:28)
[2020-10-07 20:00] VITALS: BP 121/45
[2020-10-07] MEDS: ATORVASTATIN CALCIUM 40MG TABLET PO SCH (21:15)
[2020-10-08] MEDS: CEFAZOLIN 2000MG in DEXTROSE 5% WATER 100ML IV SCH ×3 (00:38→18:05)
[2020-10-08 07:58] VITALS: BP 124/54
[2020-10-08] MEDS: ASPIRIN 81MG EC TABLET PO SCH (09:00)
[2020-10-08] MEDS: NYSTATIN 100,000 UNITS/GM OINT 15GM TOP SCH ×2 (09:00→21:00)
[2020-10-08] MEDS: CLOPIDOGREL 75MG TABLET PO SCH (09:00)
[2020-10-08] MEDS: SERTRALINE HCL 25MG TABLET PO SCH (09:01)
[2020-10-08] MEDS: AMLODIPINE 10MG TABLET PO SCH (09:01)
[2020-10-08 20:00] VITALS: BP 112/48
[2020-10-08] MEDS: ATORVASTATIN CALCIUM 40MG TABLET PO SCH (21:06)
[2020-10-09] MEDS: CEFAZOLIN 2000MG in DEXTROSE 5% WATER 100ML IV SCH ×4 (00:55→16:31)
[2020-10-09] MEDS: BISACODYL 5MG TABLET PO PRN (05:38)
[2020-10-09 08:00] VITALS: BP 120/42
[2020-10-09] MEDS: AMLODIPINE 10MG TABLET PO SCH (08:29)
[2020-10-09] MEDS: ASPIRIN 81MG EC TABLET PO SCH (08:29)
[2020-10-09] MEDS: SERTRALINE HCL 25MG TABLET PO SCH (08:30)
[2020-10-09] MEDS: CLOPIDOGREL 75MG TABLET PO SCH (08:30)
[2020-10-09] MEDS: NYSTATIN 100,000 UNITS/GM OINT 15GM TOP SCH ×2 (08:34→20:30)
[2020-10-09 12:51] VITALS: BP 110/64
[2020-10-09 13:00] VITALS: BP 110/56
[2020-10-09 20:00] VITALS: BP 107/51
[2020-10-09] MEDS: ATORVASTATIN CALCIUM 40MG TABLET PO SCH (20:30)
[2020-10-10 08:22] VITALS: BP 115/45
[2020-10-10] MEDS: AMLODIPINE 10MG TABLET PO SCH (09:18)
[2020-10-10] MEDS: ASPIRIN 81MG EC TABLET PO SCH (09:18)
[2020-10-10] MEDS: CLOPIDOGREL 75MG TABLET PO SCH (09:18)
[2020-10-10] MEDS: NYSTATIN 100,000 UNITS/GM OINT 15GM TOP SCH ×2 (09:19→23:06)
[2020-10-10] MEDS: SERTRALINE HCL 25MG TABLET PO SCH (09:19)
[2020-10-10 20:00] VITALS: BP 112/40
[2020-10-10] MEDS: ATORVASTATIN CALCIUM 40MG TABLET PO SCH (23:06)
[2020-10-11 08:00] VITALS: BP 110/36
[2020-10-11] MEDS: SERTRALINE HCL 25MG TABLET PO SCH (08:45)
[2020-10-11] MEDS: ASPIRIN 81MG EC TABLET PO SCH (08:45)
[2020-10-11] MEDS: CLOPIDOGREL 75MG TABLET PO SCH (08:45)
[2020-10-11] MEDS: AMLODIPINE 10MG TABLET PO SCH (08:46)
[2020-10-11] MEDS: NYSTATIN 100,000 UNITS/GM OINT 15GM TOP SCH ×2 (08:47→22:03)
[2020-10-11 20:00] VITALS: BP 106/61
[2020-10-11] MEDS: ATORVASTATIN CALCIUM 40MG TABLET PO SCH (22:03)
[2020-10-12 08:00] VITALS: BP 110/43
[2020-10-12] MEDS: ASPIRIN 81MG EC TABLET PO SCH ×2 (08:27→09:00)
[2020-10-12] MEDS: CLOPIDOGREL 75MG TABLET PO SCH ×2 (08:27→09:00)
[2020-10-12] MEDS: SERTRALINE HCL 25MG TABLET PO SCH ×2 (08:27→09:00)
[2020-10-12] MEDS: NYSTATIN 100,000 UNITS/GM OINT 15GM TOP SCH ×2 (08:27→23:01)
[2020-10-12] MEDS: AMLODIPINE 10MG TABLET PO SCH ×2 (08:27→09:00)
[2020-10-12 20:58] VITALS: BP 118/51
[2020-10-12] MEDS: ATORVASTATIN CALCIUM 40MG TABLET PO SCH (23:02)
[2020-10-13 08:30] VITALS: BP 117/40
[2020-10-13] MEDS: SERTRALINE HCL 25MG TABLET PO SCH ×2 (09:00→14:16)
[2020-10-13] MEDS: AMLODIPINE 10MG TABLET PO SCH (09:00)
[2020-10-13] MEDS: NYSTATIN 100,000 UNITS/GM OINT 15GM TOP SCH ×2 (09:00→22:09)
[2020-10-13] MEDS: CLOPIDOGREL 75MG TABLET PO SCH (09:00)
[2020-10-13] MEDS: ASPIRIN 81MG EC TABLET PO SCH (09:00)
[2020-10-13] MEDS: ARIPIPRAZOLE 5MG TABLET PO SCH (16:30)
[2020-10-13 20:00] VITALS: BP 119/59
[2020-10-13] MEDS: ATORVASTATIN CALCIUM 40MG TABLET PO SCH (22:09)
[2020-10-14 08:00] VITALS: BP 128/48
[2020-10-14] MEDS: ARIPIPRAZOLE 5MG TABLET PO SCH (08:15)
[2020-10-14] MEDS: ASPIRIN 81MG EC TABLET PO SCH (08:15)
[2020-10-14] MEDS: BISACODYL 5MG TABLET PO PRN (08:17)
[2020-10-14] MEDS: CLOPIDOGREL 75MG TABLET PO SCH (08:17)
[2020-10-14] MEDS: AMLODIPINE 10MG TABLET PO SCH (08:17)
[2020-10-14] MEDS: NYSTATIN 100,000 UNITS/GM OINT 15GM TOP SCH ×2 (08:17→22:49)
[2020-10-14] MEDS: SERTRALINE HCL 25MG TABLET PO SCH (08:17)
[2020-10-14 20:00] VITALS: BP 97/39
[2020-10-14] MEDS: ATORVASTATIN CALCIUM 40MG TABLET PO SCH (22:50)
[2020-10-15 08:00] VITALS: BP 118/62
[2020-10-15] MEDS: SERTRALINE HCL 25MG TABLET PO SCH ×2 (09:00→09:39)
[2020-10-15] MEDS: ASPIRIN 81MG EC TABLET PO SCH ×2 (09:00→09:39)
[2020-10-15] MEDS: AMLODIPINE 10MG TABLET PO SCH ×2 (09:00→09:39)
[2020-10-15] MEDS: CLOPIDOGREL 75MG TABLET PO SCH ×2 (09:00→09:39)
[2020-10-15] MEDS: ARIPIPRAZOLE 5MG TABLET PO SCH ×2 (09:00→09:38)
[2020-10-15] MEDS: NYSTATIN 100,000 UNITS/GM OINT 15GM TOP SCH ×2 (09:00→21:23)
[2020-10-15 20:00] VITALS: BP 119/51
[2020-10-15] MEDS: ATORVASTATIN CALCIUM 40MG TABLET PO SCH (21:22)
[2020-10-16 08:00] VITALS: BP 107/41
[2020-10-16] MEDS: AMLODIPINE 10MG TABLET PO SCH (09:00)
[2020-10-16] MEDS: ARIPIPRAZOLE 5MG TABLET PO SCH (09:00)
[2020-10-16] MEDS: ASPIRIN 81MG EC TABLET PO SCH (09:00)
[2020-10-16] MEDS: NYSTATIN 100,000 UNITS/GM OINT 15GM TOP SCH ×2 (09:00→21:33)
[2020-10-16] MEDS: SERTRALINE HCL 25MG TABLET PO SCH (09:00)
[2020-10-16] MEDS: CLOPIDOGREL 75MG TABLET PO SCH (09:00)
[2020-10-16] MEDS ORDERED: LORAZEPAM 2MG/ML CPJ IM PRN (14:30)
[2020-10-16 20:00] VITALS: BP 115/45
[2020-10-16] MEDS: ATORVASTATIN CALCIUM 40MG TABLET PO SCH (21:33)
[2020-10-17 08:00] VITALS: BP 125/44
[2020-10-17] MEDS: ARIPIPRAZOLE 5MG TABLET PO SCH (09:00)
[2020-10-17] MEDS: NYSTATIN 100,000 UNITS/GM OINT 15GM TOP SCH ×2 (09:00→22:02)
[2020-10-17] MEDS: SERTRALINE HCL 25MG TABLET PO SCH (09:00)
[2020-10-17] MEDS: ASPIRIN 81MG EC TABLET PO SCH (09:00)
[2020-10-17] MEDS: CLOPIDOGREL 75MG TABLET PO SCH (09:00)
[2020-10-17] MEDS: AMLODIPINE 10MG TABLET PO SCH (09:00)
[2020-10-17] MEDS: HALOPERIDOL LACTATE 5MG/ML VIAL IM PRN (15:57)
[2020-10-17 20:00] VITALS: BP 117/45
[2020-10-17] MEDS: ATORVASTATIN CALCIUM 40MG TABLET PO SCH (22:01)
[2020-10-18 07:49] VITALS: BP 118/65
[2020-10-18] MEDS: NYSTATIN 100,000 UNITS/GM OINT 15GM TOP SCH ×2 (09:00→21:08)
[2020-10-18] MEDS: CLOPIDOGREL 75MG TABLET PO SCH (09:00)
[2020-10-18] MEDS: SERTRALINE HCL 25MG TABLET PO SCH (09:00)
[2020-10-18] MEDS: AMLODIPINE 10MG TABLET PO SCH (09:00)
[2020-10-18] MEDS: ARIPIPRAZOLE 5MG TABLET PO SCH (09:00)
[2020-10-18] MEDS: ASPIRIN 81MG EC TABLET PO SCH (09:00)
[2020-10-18] MEDS ORDERED: ARIPIPRAZOLE 5MG TABLET PO SCH (15:00)
[2020-10-18] MEDS: HALOPERIDOL LACTATE 5MG/ML VIAL IM PRN (17:02)
[2020-10-18 20:00] VITALS: BP 115/48
[2020-10-18] MEDS: ATORVASTATIN CALCIUM 40MG TABLET PO SCH (21:07)
[2020-10-19 08:00] VITALS: BP 118/53
[2020-10-19] MEDS ORDERED: ARIPIPRAZOLE 5MG TABLET PO SCH (09:00)
[2020-10-19] MEDS: ASPIRIN 81MG EC TABLET PO SCH (09:00)
[2020-10-19] MEDS: NYSTATIN 100,000 UNITS/GM OINT 15GM TOP SCH (09:00)
[2020-10-19] MEDS: CLOPIDOGREL 75MG TABLET PO SCH (09:00)
[2020-10-19] MEDS: AMLODIPINE 10MG TABLET PO SCH (09:00)
[2020-10-19] MEDS: SERTRALINE HCL 25MG TABLET PO SCH (09:00)
[2020-10-19 17:40] VITALS: BP 130/48
== END 2020-10-19 18:40 | DRG 56 ==
PROVIDERS: ADMIT Psychiatry & Neurology Neurology; ATTEND Internal Medicine
PROC: 02HV33Z Insertion of Infusion Device into Superior Vena Cava, Percutaneous Approach (ICD-10-PCS; principal; 2020-10-07)
PROC: B548ZZA Ultrasonography of Superior Vena Cava, Guidance (ICD-10-PCS; 2020-10-07)
PROC: B5181ZA Fluoroscopy of Superior Vena Cava using Low Osmolar Contrast, Guidance (ICD-10-PCS; 2020-10-07)
DX: I69.351 Hemiplegia and hemiparesis following cerebral infarction affecting right dominant side (principal); I63.512 Cerebral infarction due to unspecified occlusion or stenosis of left middle cerebral artery; N39.0 Urinary tract infection, site not specified; R47.01 Aphasia; R78.81 Bacteremia; F33.1 Major depressive disorder, recurrent, moderate; B95.61 Methicillin susceptible Staphylococcus aureus infection as the cause of diseases classified elsewhere; B96.20 Unspecified Escherichia coli [E. coli] as the cause of diseases classified elsewhere; E78.5 Hyperlipidemia, unspecified; I10 Essential (primary) hypertension; F01.50 Vascular dementia, unspecified severity, without behavioral disturbance, psychotic disturbance, mood disturbance, and anxiety; F41.9 Anxiety disorder, unspecified; S00.11XA Contusion of right eyelid and periocular area, initial encounter; W18.39XA Other fall on same level, initial encounter; Y93.89 Activity, other specified; Y92.89 Other specified places as the place of occurrence of the external cause; Y99.8 Other external cause status; Z79.899 Other long term (current) drug therapy
CPT/HCPCS: 36415; 36573; 73502; 73562; 73610; 80048; 82962; 85025; 92523; 92610; 97110; 97112; 97116; 97163; 97166; 97530; 97535; 97760; C1725; C1769; C1893; J0690; J1630; J1650; J2060; J3490; J7060; 97763-GO